=== PATIENT | male | born 1985 | race Caucasian/White ===

== ENCOUNTER 2020-02-24 13:13 | Outpatient (REF) | payer BC, SELFPAY ==
[2020-02-26 22:57] LABS: COVID-19 RT-PCR UVMMC Result Negative (Negative)
== END 2020-02-24 13:33 ==
LOC: NCHCN 13:13
PROVIDERS: PCP Pediatrics; Visit Provider Nurse Practitioner Family
DX: J06.9 Acute upper respiratory infection, unspecified (principal)
CPT/HCPCS: U0003

== ENCOUNTER 2021-03-22 15:39 | Outpatient (REF) | payer OTHER, SELFPAY ==
[2021-03-23 01:11] LABS: COVID-19 RT-PCR UVMMC Result Negative (Negative)
== END 2021-03-22 15:40 | disposition home or self-care (01) ==
LOC: NCHCN 15:39
PROVIDERS: Visit Provider Nurse Practitioner Family
DX: Z20.822 Contact with and (suspected) exposure to COVID-19 (principal); J06.9 Acute upper respiratory infection, unspecified
CPT/HCPCS: U0003

== ENCOUNTER 2021-05-25 16:13 | Outpatient (REF) | payer OTHER, SELFPAY ==
[2021-05-26 02:31] LABS: COVID-19 RT-PCR UVMMC Result Negative (Negative)
== END 2021-05-25 16:14 | disposition home or self-care (01) ==
LOC: LBN 16:13
PROVIDERS: Visit Provider Nurse Practitioner Family
DX: Z20.822 Contact with and (suspected) exposure to COVID-19 (principal)
CPT/HCPCS: U0003